=== PATIENT | female | born 1995 | race Caucasian/White ===

== ENCOUNTER 2021-09-08 00:39 | Emergency (ER) | payer OTHER ==
[~2021-09-08] VITALS: Ht 175.3 cm; Wt 99.1 kg
[2021-09-08 02:02] LABS: VENOUS BASE EXCESS 0.2 (-2.0-2.0); VENOUS HCO3 25.5 MEQ/L (23.0-27.0); VENOUS O2 SATURATION 63.5 % (60.0-80.0); VENOUS PARTIAL PRESSURE CO2 43.4 mmHg (38.0-50.0); VENOUS PARTIAL PRESSURE O2 31.4 mmHg (30.0-50.0); VENOUS PH 7.387 UNITS (7.330-7.430); VENOUS STANDARD HCO3 23.8 MEQ/L; VENOUS TOTAL CO2 26.8 MEQ/L (24.0-28.0)
[2021-09-08 02:06] LABS: BASO % 0.3 % (0.0-1.0); EOS # 0.2 10^3/uL (0.0-0.5); EOS % 1.4 % (0.0-3.0); HEMOGLOBIN 15.1 g/dl (12.0-15.5); LYMPH # 3.4 10^3/uL (1.5-5.0); LYMPH % 30.2 % (24.0-44.0); MEAN CORPUSCULAR HEMOGLOBIN 28.5 pg (27.0-33.0); MEAN CORPUSCULAR HGB CONC 33.6 g/dl (32.0-36.5); MEAN CORPUSCULAR VOLUME 84.9 fl (80.0-96.0); MONO # 0.5 10^3/uL (0.0-0.8); MONO % 4.7 % (2.0-8.0); PLATELET COUNT, AUTOMATED 308 10^3/uL (150-450); WHITE BLOOD COUNT 11.1 10^3/uL (4.0-10.0)
[2021-09-08 02:39] LABS: BLOOD UREA NITROGEN 11 MG/DL (7-18); CALCIUM LEVEL 9.5 MG/DL (8.5-10.1); CARBON DIOXIDE LEVEL 24 MEQ/L (21-32); CHLORIDE LEVEL 107 MEQ/L (98-107); CREATININE FOR GFR 0.74 MG/DL (0.55-1.30); GLOMERULAR FILTRATION RATE > 60.0 (>60); GLUCOSE, FASTING 108 MG/DL (70-100); HCG, SERUM QUANTITATIVE 536 MIU/ML; POTASSIUM SERUM 4.4 MEQ/L (3.5-5.1); SODIUM LEVEL 139 MEQ/L (136-145)
[2021-09-08 09:11] LABS: INR 0.94
[2021-09-08 09:12] LABS: PARTIAL THROMBOPLASTIN TIME 24.5 SECONDS (25.9-37.0)
[2021-09-08 09:30] VITALS: BP 169/84
[2021-09-08 10:43] LABS: RSV AMPLIFICATION NEGATIVE (NEGATIVE)
== END 2021-09-08 12:03 | disposition home or self-care (01) ==
LOC: M ED 00:39
DX: R20.2 Paresthesia of skin (principal); F17.290 Nicotine dependence, other tobacco product, uncomplicated; Z88.2 Allergy status to sulfonamides

== ENCOUNTER 2021-09-11 19:32 | Emergency (ER) | payer OTHER ==
[~2021-09-11] VITALS: Ht 175.3 cm; Wt 100.0 kg
[2021-09-11 22:17] VITALS: BP 129/78
== END 2021-09-11 22:23 | disposition home or self-care (01) ==
LOC: M ED 19:32
DX: O99.891 Other specified diseases and conditions complicating pregnancy (principal); R20.2 Paresthesia of skin; M79.602 Pain in left arm; Z3A.01 Less than 8 weeks gestation of pregnancy; O24.419 Gestational diabetes mellitus in pregnancy, unspecified control; Z88.2 Allergy status to sulfonamides; Z91.89 Other specified personal risk factors, not elsewhere classified

== ENCOUNTER → 2021-09-23 | Outpatient (CLI) | payer OTHER | LOC: M WHC 13:46 | PROVIDERS: ATTEND Advanced Practice Midwife | DX: Z36.89 Encounter for other specified antenatal screening (principal); Z3A.01 Less than 8 weeks gestation of pregnancy ==

== ENCOUNTER 2022-05-07 13:00 | Inpatient (IN) | payer OTHER ==
[~2022-05-07] VITALS: Ht 175.3 cm; Wt 101.2 kg
[2022-05-07] VITALS (10 sets, daily range): BP systolic 114–143; BP diastolic 66–92
[2022-05-07] MEDS ORDERED: LACTATED RINGER'S 1000 ML IV STA (13:34)
[2022-05-07] MEDS ORDERED: METHYLERGONOVINE MALEATE 0.2MG/ML 1ML VIAL IM PRN (13:35)
[2022-05-07] MEDS ORDERED: CARBOPROST TROMETHAMINE 250 MCG/ML AMP IM PRN (13:35)
[2022-05-07] MEDS ORDERED: LR 1,000 ML IV SCH (13:35)
[2022-05-07] MEDS ORDERED: OXYTOCIN DRIP 30 UNITS in IV 1 EA IV PRN ×4 (13:35)
[2022-05-07] MEDS ORDERED: LIDOCAINE 1% MDV 20ML VIAL INFIL PRN (13:35)
[2022-05-07] MEDS ORDERED: TRANEXAMIC ACID INJection 1,000 MG in NS 100 ML IV PRN (13:35)
[2022-05-07] MEDS ORDERED: D5W/0.9% SODIUM CHLORIDE 1,000 ML IV SCH (13:40)
[2022-05-07 14:32] LABS: HEMOGLOBIN 11.5 g/dl (12.0-15.5); MEAN CORPUSCULAR HEMOGLOBIN 25.7 pg (27.0-33.0); MEAN CORPUSCULAR HGB CONC 31.9 g/dl (32.0-36.5); MEAN CORPUSCULAR VOLUME 80.5 fl (80.0-96.0); PLATELET COUNT, AUTOMATED 238 10^3/uL (150-450); RED BLOOD COUNT 4.47 10^6/uL (4.00-5.40); WHITE BLOOD COUNT 8.2 10^3/uL (4.0-10.0)
[2022-05-07] MEDS ORDERED: INSUDET SC (15:09)
[2022-05-07] MEDS ORDERED: ASPI81CH33 PO (15:12)
[2022-05-07] MEDS ORDERED: INSUH10VL SC (15:12)
[2022-05-07] MEDS ORDERED: ESSE250T PO (15:12)
[2022-05-07] MEDS ORDERED: ZOLO50TA PO (15:12)
[2022-05-07] MEDS ORDERED: miSOPROStol 50MCG 1/2 TABLET SL ONE (15:30)
[2022-05-07] MEDS ORDERED: GLUCAGON INJ 1MG VIAL SC PRN (15:40)
[2022-05-07] MEDS ORDERED: DEXTROSE 50% 50ML SYRINGE IV PRN (15:40)
[2022-05-07] MEDS ORDERED: GLUCOSE 4GM CHEW TABLET PO PRN (15:40)
[2022-05-07] MEDS: NS 1,000 ML IV SCH ×2 (15:54→22:37)
[2022-05-07] MEDS ORDERED: UNRESOLVED CLARIFICATION ENTRY XX SCH (16:00)
[2022-05-07] MEDS: INSULIN LISPRO (NovoLOG) PER UNIT SC SCH ×2 (20:13→21:57)
[2022-05-07] MEDS ORDERED: EPIDURAL/PCA KEYS XX PRN (23:00)
[2022-05-07] MEDS ORDERED: diphenhydrAMINE 50MG/ML VIAL IV PRN (23:00)
[2022-05-07] MEDS ORDERED: LR 500 ML IV PRN (23:00)
[2022-05-07] MEDS ORDERED: FENTANYL/ROPIVACAINE/NACL BAG 100 ML EPIDURAL SCH (23:00)
[2022-05-07] MEDS ORDERED: ePHEDrine SULFATE 25 MG/5 ML(5MG/ML) SYRINGE IVP PRN (23:00)
[2022-05-07] MEDS ORDERED: ONDANSETRON 4MG 2ML VIAL IV PRN (23:00)
[2022-05-07] MEDS ORDERED: NALOXONE INJ 0.4MG/1ML VIAL IV PRN (23:00)
[2022-05-07] MEDS ORDERED: OXYTOCIN 30UNITS IN 0.9% NaCl 500ML IV BAG As Ordered ONE (23:08)
[2022-05-08] MEDS ORDERED: RHOGAM 300MCG (1500IU) INJ IM SCH (00:05)
[2022-05-08] MEDS ORDERED: METHYLERGONOVINE MALEATE 0.2 MG TAB PO PRN (00:05)
[2022-05-08] MEDS ORDERED: IBUPROFEN 600MG TAB PO PRN (00:05)
[2022-05-08] MEDS ORDERED: ANUSOL HC CREAM 30GM TOP PRN (00:05)
[2022-05-08] MEDS ORDERED: DIBUCAINE 1% OINTMENT 30GM TOP PRN (00:05)
[2022-05-08] MEDS ORDERED: DOCUSATE SODIUM 100MG CAPSULE PO PRN (00:05)
[2022-05-08] MEDS ORDERED: OXYTOCIN DRIP 30 UNITS in IV 1 EA IV SCH (00:05)
[2022-05-08] MEDS: IBUPROFEN 800 MG TAB PO PRN ×3 (00:33→16:42)
[2022-05-08 00:50] VITALS: BP 123/73
[2022-05-08 03:15] VITALS: BP 115/78
[2022-05-08] MEDS: ACETAMINOPHEN 500 MG TAB PO PRN (05:20)
[2022-05-08 06:00] VITALS: BP 133/76
[2022-05-08] MEDS: PRENATAL VITAMINS CHEWABLE TABLET PO SCH (07:57)
[2022-05-08] MEDS: ACETAMINOPHEN TAB 650MG DOSE (2X325MG) PO PRN ×2 (12:33→20:48)
[2022-05-08 18:00] VITALS: BP 120/62
[2022-05-09] MEDS: IBUPROFEN 800 MG TAB PO PRN (04:02)
[2022-05-09 05:35] VITALS: BP 105/65
[2022-05-09 07:34] LABS: HEMATOCRIT 30.7 % (36.0-47.0); HEMOGLOBIN 9.6 g/dl (12.0-15.5); MEAN CORPUSCULAR HEMOGLOBIN 25.7 pg (27.0-33.0); MEAN CORPUSCULAR HGB CONC 31.3 g/dl (32.0-36.5); MEAN CORPUSCULAR VOLUME 82.3 fl (80.0-96.0); PLATELET COUNT, AUTOMATED 186 10^3/uL (150-450); RED BLOOD COUNT 3.73 10^6/uL (4.00-5.40); WHITE BLOOD COUNT 9.1 10^3/uL (4.0-10.0)
[2022-05-09] MEDS: ACETAMINOPHEN 500 MG TAB PO PRN (08:04)
[2022-05-09] MEDS: PRENATAL VITAMINS CHEWABLE TABLET PO SCH (08:04)
[2022-05-10] MEDS ORDERED: MEASLES,MUMPS,RUBELLA VACCINE INJ (MMR-II) SC.IMMUN ONE (09:00)
== END 2022-05-09 12:25 | disposition home or self-care (01) | DRG 807 ==
LOC: M LDI 13:00 → M OBS 05-08 00:41
PROVIDERS: ADMIT Advanced Practice Midwife; ATTEND Obstetrics & Gynecology
PROC: 10E0XZZ Delivery of Products of Conception, External Approach (ICD-10-PCS; principal; 2022-05-07)
PROC: 3E0P7GC Introduction of Other Therapeutic Substance into Female Reproductive, Via Natural or Artificial Opening (ICD-10-PCS; 2022-05-07)
DX: O24.424 Gestational diabetes mellitus in childbirth, insulin controlled (principal); Z37.0 Single live birth; Z3A.39 39 weeks gestation of pregnancy; O69.89X0 Labor and delivery complicated by other cord complications, not applicable or unspecified; O99.214 Obesity complicating childbirth; E66.9 Obesity, unspecified; O99.344 Other mental disorders complicating childbirth; F41.8 Other specified anxiety disorders

== ENCOUNTER 2022-11-01 20:56 | Emergency (ER) | payer OTHER ==
[~2022-11-01] VITALS: Ht 172.7 cm; Wt 85.5 kg
[~2022-11-01 20:56] MED LIST: ASPI81CH33 PO; ESSE250T PO; INSUDET SC; INSUH10VL SC; ZOLO50TA PO
[2022-11-01 21:10] VITALS: TEMP 97.4
[2022-11-01] MEDS ORDERED: NS 1,000 ML IV ONE (21:25)
[2022-11-01 21:39] LABS: BASO % 0.5 % (0.0-1.0); EOS # 0.2 10^3/uL (0.0-0.5); EOS % 2.9 % (0.0-3.0); HEMATOCRIT 41.4 % (36.0-47.0); HEMOGLOBIN 13.3 g/dl (12.0-15.5); LYMPH # 3.3 10^3/uL (1.5-5.0); LYMPH % 42.4 % (24.0-44.0); MEAN CORPUSCULAR HEMOGLOBIN 26.7 pg (27.0-33.0); MEAN CORPUSCULAR HGB CONC 32.1 g/dl (32.0-36.5); MEAN CORPUSCULAR VOLUME 83.1 fl (80.0-96.0); MONO # 0.5 10^3/uL (0.0-0.8); NEUTROPHILS # 3.7 10^3/uL (1.5-8.5); NEUTROPHILS % 48.1 % (36.0-66.0); PLATELET COUNT, AUTOMATED 299 10^3/uL (150-450); RED BLOOD COUNT 4.98 10^6/uL (4.00-5.40); WHITE BLOOD COUNT 7.8 10^3/uL (4.0-10.0)
[2022-11-01 21:55] LABS: INR 0.98; PROTHROMBIN TIME 12.7 SECONDS (12.5-14.5)
[2022-11-01 22:03] LABS: CK-MB VALUE MASS 1.3 NG/ML (<3.6); LIPASE 42 U/L (12-53)
[2022-11-01 22:05] LABS: ALBUMIN 4.1 G/DL (3.2-5.2); ALKALINE PHOSPHATASE 89 U/L (46-116); ALT/SGPT 20 U/L (7.0-40); AST/SGOT 13 U/L (<34); BILIRUBIN,DIRECT 0.1 MG/DL (<0.4); BILIRUBIN,TOTAL 0.3 MG/DL (0.3-1.2); TOTAL PROTEIN 6.7 G/DL (5.7-8.2)
[2022-11-01 22:11] LABS: CPK CREATINE PHOSPHOKINASE 137 U/L (34-145); MB/CK RELATIVE INDEX 0.94 (< OR =4)
[2022-11-01 22:12] LABS: HCG, SERUM QUALITATIVE NEGATIVE (NEGATIVE)
[2022-11-01] MEDS ORDERED: ISOVUE-370 76% 100ML VIAL As Ordered ONE (22:38)
[2022-11-01 23:56] VITALS: O2SAT 99
[2022-11-02 00:01] VITALS: BP 124/76
[2022-11-02] MEDS ORDERED: KETOROLAC 30 MG/ML 1ML VIAL IV ONE (00:40)
[2022-11-02] MEDS ORDERED: PRED20TA PO (01:25)
[2022-11-02] MEDS ORDERED: predniSONE 20 MG TAB PO ONE (01:25)
== END 2022-11-02 01:50 | disposition home or self-care (01) ==
LOC: M ED 20:56 → EDBD 20:56 → M ED 11-02 01:50
DX: R07.9 Chest pain, unspecified (principal); M54.12 Radiculopathy, cervical region; R00.1 Bradycardia, unspecified; F41.9 Anxiety disorder, unspecified; F32.A Depression, unspecified; Z88.2 Allergy status to sulfonamides; Z91.048 Other nonmedicinal substance allergy status; Z79.52 Long term (current) use of systemic steroids; Z79.899 Other long term (current) drug therapy
CPT/HCPCS: 71045; 71275; 72125; 80047; 80076; 82550; 82553; 83690; 84484; 84703; 85025; 85610; 93005; 93041; 94760; 96361; 96374; 99285; J1885; J7512; Q9967

== ENCOUNTER 2022-12-12 09:39 | Emergency (ER) | payer OTHER ==
[~2022-12-12] VITALS: Ht 175.3 cm; Wt 87.7 kg
[~2022-12-12 09:39] MED LIST changes: +PRED20TA PO
[2022-12-12 11:38] LABS: BASO % 0.5 % (0.0-1.0); EOS # 0.2 10^3/uL (0.0-0.5); EOS % 2.3 % (0.0-3.0); HEMATOCRIT 42.6 % (36.0-47.0); HEMOGLOBIN 13.6 g/dl (12.0-15.5); LYMPH # 2.3 10^3/uL (1.5-5.0); LYMPH % 30.5 % (24.0-44.0); MEAN CORPUSCULAR HEMOGLOBIN 26.9 pg (27.0-33.0); MEAN CORPUSCULAR HGB CONC 31.9 g/dl (32.0-36.5); MEAN CORPUSCULAR VOLUME 84.2 fl (80.0-96.0); MONO # 0.4 10^3/uL (0.0-0.8); MONO % 5.5 % (2.0-8.0); NEUTROPHILS # 4.7 10^3/uL (1.5-8.5); NEUTROPHILS % 60.9 % (36.0-66.0); PLATELET COUNT, AUTOMATED 286 10^3/uL (150-450); RED BLOOD COUNT 5.06 10^6/uL (4.00-5.40); WHITE BLOOD COUNT 7.7 10^3/uL (4.0-10.0)
[2022-12-12 11:43] LABS: APPEARANCE, URINE HAZY (CLEAR); BACTERIA, URINE AUTO NEGATIVE (NEGATIVE); BILIRUBIN, URINE AUTO NEGATIVE (NEGATIVE); BLOOD, URINE BLOOD NEGATIVE (NEGATIVE); COLOR, URINE YELLOW (YELLOW); GLUCOSE, URINE (UA) AUTO NEGATIVE (NEGATIVE); KETONE, URINE AUTO NEGATIVE (NEGATIVE); LEUKOCYTE ESTERASE, URINE AUTO NEGATIVE (NEGATIVE); MUCUS, URINE SMALL (NEGATIVE); NITRITE, URINE AUTO NEGATIVE (NEGATIVE); PROTEIN, URINE AUTO NEGATIVE (NEGATIVE); RBC, URINE AUTO 0 /HPF (0-3); SPECIFIC GRAVITY URINE AUTO 1.024 (1.002-1.035); SQUAMOUS EPITHELIAL CELL UR AU 2 /HPF (0-6); UROBILINOGEN, URINE AUTO 0.2 mg/dL (0.0-2.0); WBC, URINE AUTO 1 /HPF (0-3)
[2022-12-12 11:53] LABS: BLOOD UREA NITROGEN 11 MG/DL (9-23); CALCIUM LEVEL 9.3 MG/DL (8.5-10.1); CARBON DIOXIDE LEVEL 30 MMOL/L (20-31); CHLORIDE LEVEL 106 MMOL/L (98-107); CREATININE FOR GFR 0.75 MG/DL (0.55-1.30); GLOMERULAR FILTRATION RATE > 60.0 (>60); GLUCOSE, FASTING 83 MG/DL (60-100); HCG, SERUM QUANTITATIVE 21.5 MIU/ML (<4.2); POTASSIUM SERUM 4.8 MMOL/L (3.5-5.1); SODIUM LEVEL 142 MMOL/L (136-145)
[2022-12-12] MEDS ORDERED: ACETAMINOPHEN 500 MG TAB PO ONE (15:30)
[2022-12-12 16:19] VITALS: BP 121/69; TEMP 96.4; O2SAT 100
== END 2022-12-12 16:23 | disposition home or self-care (01) ==
LOC: M ED 09:39
DX: O20.9 Hemorrhage in early pregnancy, unspecified (principal); Z84.2 Family history of other diseases of the genitourinary system; Z88.2 Allergy status to sulfonamides; Z88.1 Allergy status to other antibiotic agents; Z79.899 Other long term (current) drug therapy; Z79.52 Long term (current) use of systemic steroids; O99.330 Smoking (tobacco) complicating pregnancy, unspecified trimester

== ENCOUNTER → 2023-05-15 | Outpatient (REF) | payer OTHER | LOC: M LAB REF 16:28 | PROVIDERS: ATTEND Ophthalmology | DX: H00.11 Chalazion right upper eyelid (principal) ==